=== PATIENT | female | born 1990 | race Caucasian/White ===

== ENCOUNTER 2022-01-28 12:47 | Emergency (ER) | payer OTHER ==
[~2022-01-28] VITALS: Ht 152.4 cm; Wt 59.1 kg
[2022-01-28] MEDS ORDERED: LIDOCAINE 5% TRANSDERMAL PATCH TD ONE (13:15)
[2022-01-28] MEDS ORDERED: KETOROLAC TROMETHAMINE 30 MG/ML VIAL IM ONE (13:15)
[2022-01-28] MEDS ORDERED: CYCLOBENZAPRINE HCL 10 MG TABLET PO ONE (13:15)
[2022-01-28 13:30] VITALS: BP 137/82
[2022-01-28] MEDS ORDERED: IBUP-2070 PO (13:55)
[2022-01-28] MEDS ORDERED: CYCL-448 PO (13:55)
== END 2022-01-28 14:08 | disposition home or self-care (01) ==
LOC: EMS 12:48
DX: M54.50 Low back pain, unspecified (principal); W18.39XA Other fall on same level, initial encounter; Y93.89 Activity, other specified; Y92.89 Other specified places as the place of occurrence of the external cause; Y99.8 Other external cause status
CPT/HCPCS: 99283; 96372; J1885